=== PATIENT | male | born 1985 | race African-American/Black ===

== ENCOUNTER 2021-11-07 13:42 | Emergency (ER) | payer SELFPAY ==
[~2021-11-07] VITALS: Ht 182.9 cm; Wt 65.8 kg
[2021-11-07] MEDS ORDERED: CASIRIVIMAB/IMDEVIMAB 10 ML in SODIUM CHLORIDE 0.9% 100 ML IV ONE (14:00)
== END 2021-11-07 15:00 | disposition home or self-care (01) ==
LOC: ER 13:57
DX: U07.1 COVID-19 (principal); R50.9 Fever, unspecified; R05.9 Cough, unspecified
CPT/HCPCS: 99283; J7050